=== PATIENT | male | born 1955 | race Caucasian/White ===

== ENCOUNTER 2019-09-30 14:00 | Outpatient (CLI) | payer BC ==
--- NOTE | 2019-09-30 14:58 | ULT ---
THYROID ULTRASOUND: DATE: 09/30/2019. COMPARISON: None. HISTORY: Evaluate for thyroid tissue, history of Tongue base mass on outside imaging. FINDINGS: A focused ultrasound in the region of the thyroid gland is provided. No appreciable thyroid tissue i s seen in the expected location of the isthmus, right lobe, or left lobe. IMPRESSION: Ultrasound of the neck demonstrates no appreciable thyroid tissue. In this clinical context, perhaps the patient's mass at the base of the tongue could represent lingual thyroid tissue. Correlation with prior imaging is requested as no comparison imaging is available. If there is clinical concern for lingual thyroid, nuclear medicine imaging may be beneficial. POS: [id number]
== END 2019-09-30 14:01 | disposition home or self-care (01) ==
LOC: BICULT 14:00
PROVIDERS: ATTEND Specialist
DX: E07.89 Other specified disorders of thyroid (principal)
CPT/HCPCS: 76536

== ENCOUNTER 2020-12-17 13:15 | Inpatient (IN) | payer BC ==
[~2020-12-17 13:15] MED LIST: Iopamidol-370 76% 500 ML 1 ML ONE
[2020-12-17 15:06] LABS: #Eosinphils 0.1 thou/uL (0.0-0.7); #Lymphocytes 1.1 thou/uL (1.20-3.40); #Monocytes 0.4 thou/uL (0.11-0.59); #Neutrophils 14.4 thou/uL (1.40-6.50); %Basophils 0.2 % (0.0-1.0); %Eosinophils 0.6 % (0.0-10.0); %Lymphocytes 6.9 % (21.0-51.0); %Monocytes 2.6 % (0.0-10.0); %Neutrophils 89.7 % (42.0-75.0); Hemoglobin 16.6 g/dL (14.0-18.0); Mean Corpuscular HGB CONC 32.9 g/dL (32.0-36.0); Mean Corpuscular Hemoglobin 30.6 pg (27.0-31.0); Mean Corpuscular Volume 92.8 fL (78.0-98.0); Mean Platelet Volume 9.2 fL (7.4-10.4); Platelet Count 203 thou/uL (130-400); RBC Distribution Width 12.9 % (11.5-14.5); Red Blood Cell (RBC) Count 5.44 mill/uL (4.70-6.10)
[2020-12-17 15:16] LABS: PTT 26.7 sec (22.9-36.1); Prothrombin Time 13.2 sec (12.0-14.7)
[2020-12-17 16:25] LABS: ALT (SGPT) 20 U/L (8-55); AST (SGOT) 15 U/L (5-34); Albumin 4.1 g/dL (3.4-4.8); Alkaline Phosphatase 83 U/L (40-110); Anion Gap 15 mmol/L (10-20); BUN (Urea Nitrogen) 18 mg/dL (8.4-25.7); Bilirubin, Total 0.8 mg/dL (0.2-1.2); Calc. Creatinine Clearance 0 mL/min (70-130); Calcium 9.3 mg/dL (7.8-10.44); Carbon Dioxide 24 mmol/L (23-31); Chloride 105 mmol/L (98-107); Globulin 2.8 g/dL (2.4-3.5); Glucose 123 mg/dL (80-115); Potassium 4.4 mmol/L (3.5-5.1); Protein, Total 6.9 g/dL (5.8-8.1); Sodium 140 mmol/L (136-145)
[2020-12-17] MEDS ORDERED: traMADol HCl 50 MG TAB PO PRN (19:38)
[2020-12-17] MEDS ORDERED: Acetaminophen/Codeine 30-300mg Tablet PO PRN (19:38)
[2020-12-17] MEDS ORDERED: Morphine 2 MG/ML VIAL SLOW IVP PRN (19:38)
[2020-12-17] MEDS ORDERED: HYDROcodone/Acetaminophen 7.5/325 mg Tablet PO PRN (19:38)
[2020-12-17] MEDS: Dexamethasone 4 MG TAB PO SCH ×2 (23:31→23:52)
[2020-12-18 00:44] LABS: SARS-CoV-2 NAA Rapid Test Not Detected (NotDetected)
[2020-12-18] MEDS: Dexamethasone 4 MG TAB PO SCH ×3 (05:12→18:06)
[2020-12-18] MEDS ORDERED: Heparin 1,000 UNITS/ML VIAL ONE (09:56)
[2020-12-18] MEDS ORDERED: Sodium Chloride 0.9% 10 ML ONE ×2 (10:03→11:18)
[2020-12-18] MEDS ORDERED: Thrombin 5000 UNITS/5 ML VIAL ONE (10:03)
[2020-12-18] MEDS ORDERED: Bacitracin Zinc Ointment 30 gm TUBE ONE (10:03)
[2020-12-18] MEDS ORDERED: Phenylephrine 10 MG/ML VIAL ONE (10:05)
[2020-12-18] MEDS ORDERED: PROPOFOL 200 MG/20 ML VIAL ONE (10:30)
[2020-12-18] MEDS ORDERED: Rocuronium Bromide 10 MG/ML (10ML VIAL) ONE (10:30)
[2020-12-18] MEDS ORDERED: Ondansetron PF 4 MG/2 ML Vial ONE (10:30)
[2020-12-18] MEDS ORDERED: Lidocaine 1% PF 5 ML VIAL ONE (10:30)
[2020-12-18] MEDS ORDERED: Glycopyrrolate 0.2 MG/ML 5 ML SYRINGE ONE (10:30)
[2020-12-18] MEDS ORDERED: Succinylcholine 200 MG/10 ml SYRINGE FS ONE (10:30)
[2020-12-18] MEDS ORDERED: Dexamethasone 20 MG/5 ML VIAL ONE (10:30)
[2020-12-18] MEDS ORDERED: Fentanyl 100 MCG/2 ML VIAL ONE ×5 (10:32→13:17)
[2020-12-18] MEDS ORDERED: Nitroglycerin 50 MG/250 ML BOT 0 ML ONE (10:34)
[2020-12-18] MEDS ORDERED: Promethazine HCl 25 MG/ML VIAL SLOW IVP PRN (11:29)
[2020-12-18] MEDS ORDERED: Meperidine HCl/PF 25 MG/ML VIAL SLOW IVP PRN (11:29)
[2020-12-18] MEDS ORDERED: Promethazine HCl 25 MG/ML VIAL IM PRN (11:29)
[2020-12-18] MEDS ORDERED: HYDROmorphone 2 MG/ML VIAL SLOW IVP PRN (11:29)
[2020-12-18] MEDS ORDERED: SUGAMMADEX SODIUM 200 MG/2 ML VIAL ONE (11:53)
[2020-12-18] MEDS ORDERED: Labetalol HCl 100 MG/20 ML VIAL SLOW IVP PRN (12:19)
[2020-12-18] MEDS ORDERED: Promethazine HCl 12.5 MG in Sodium Chloride 0.9% 50 ML IVPB PRN (12:19)
[2020-12-18] MEDS ORDERED: Labetalol HCl 100 MG/20 ML VIAL ONE (12:22)
[2020-12-18] MEDS ORDERED: hydrALAZINE 20 MG/ML VIAL ONE (12:53)
[2020-12-18] MEDS: Acetaminophen 325 MG TAB PO PRN ×2 (14:13→20:19)
[2020-12-18] MEDS: hydrALAZINE 20 MG/ML VIAL SLOW IVP PRN ×2 (14:13→14:44)
[2020-12-18] MEDS: Atorvastatin Calcium 20 MG TAB PO SCH (20:20)
[2020-12-19] MEDS: Dexamethasone 4 MG TAB PO SCH ×4 (00:24→17:34)
[2020-12-19 05:19] VITALS: BMI 28.4
[2020-12-19] MEDS: Levothyroxine 175 MCG TAB PO SCH (06:07)
[2020-12-19] MEDS ORDERED: Atenolol 25 MG TAB PO SCH (09:00)
[2020-12-19] MEDS: Allopurinol 300 MG TAB PO SCH (09:44)
[2020-12-19] MEDS: Ondansetron PF 4 MG/2 ML Vial IVP PRN (09:44)
[2020-12-19] MEDS: Amlodipine 5 MG TAB PO SCH (09:47)
[2020-12-19] MEDS: Acetaminophen 325 MG TAB PO PRN (21:07)
[2020-12-19] MEDS: Atorvastatin Calcium 20 MG TAB PO SCH (21:07)
[2020-12-20] MEDS: Dexamethasone 4 MG TAB PO SCH ×3 (00:28→11:05)
[2020-12-20] MEDS: Levothyroxine 175 MCG TAB PO SCH (05:43)
[2020-12-20] MEDS: Amlodipine 5 MG TAB PO SCH (08:24)
[2020-12-20] MEDS: Allopurinol 300 MG TAB PO SCH (08:24)
[2020-12-20] MEDS: Ondansetron PF 4 MG/2 ML Vial IVP PRN (08:24)
[2020-12-20] MEDS ORDERED: Iopamidol-370 76% 500 ML 1 ML ONE (08:51)
[2020-12-20] MEDS ORDERED: Lidocaine 1% (PF) 30 ML VIAL ONE (11:39)
[2020-12-20 16:26] VITALS: BP 139/93; TEMP 97.7
== END 2020-12-20 18:15 | disposition home or self-care (01) | DRG 25 ==
LOC: ERS 13:15 → ONC 15:29 → CCU 12-18 13:55 → SURG A 12-19 10:45
PROVIDERS: ADMIT Surgery; ATTEND Surgery
PROC: 00BC0ZZ Excision of Cerebellum, Open Approach (ICD-10-PCS; principal; 2020-12-18)
PROC: 06H03DZ Insertion of Intraluminal Device into Inferior Vena Cava, Percutaneous Approach (ICD-10-PCS; 2020-12-20)
PROC: B519ZZZ Fluoroscopy of Inferior Vena Cava (ICD-10-PCS; 2020-12-20)
DX: C79.31 Secondary malignant neoplasm of brain (principal); G93.5 Compression of brain; G93.6 Cerebral edema; I82.442 Acute embolism and thrombosis of left tibial vein; I48.11 Longstanding persistent atrial fibrillation; Z20.822 Contact with and (suspected) exposure to COVID-19; I10 Essential (primary) hypertension; E03.9 Hypothyroidism, unspecified; M10.9 Gout, unspecified; Z85.820 Personal history of malignant melanoma of skin; Z80.1 Family history of malignant neoplasm of trachea, bronchus and lung; Z80.0 Family history of malignant neoplasm of digestive organs; Z79.899 Other long term (current) drug therapy; Z79.52 Long term (current) use of systemic steroids
CPT/HCPCS: 37191; 70450; 70470; 71260; 74177; 80053; 83880; 85025; 85610; 85730; 88307; 88341; 88342; 93005; 93010; 93306; 93970; C1769; J0360; J0690; J1100; J1642; J1644; J2001; J2270; J2370; J2405; J2550; J2704; J3010; J3490; J8540; Q9967; U0002; U0005

== ENCOUNTER 2021-01-04 10:16 | Outpatient (CLI) | payer BC | END 2021-01-04 10:17 | disposition home or self-care (01) | LOC: CT 10:16 | PROVIDERS: ATTEND Surgery | DX: C79.31 Secondary malignant neoplasm of brain (principal); Z98.890 Other specified postprocedural states | CPT/HCPCS: 70450 ==

== ENCOUNTER 2021-01-14 11:31 | Outpatient (CLI) | payer BC ==
[2021-01-14 13:01] LABS: Hemoglobin 14.6 g/dL (13.5-17.5); Mean Corpuscular Hemoglobin 30.4 pg (27.0-33.0); Mean Corpuscular Volume 92.3 fl (81.2-95.1); Mean Platelet Volume 10.4 fl (7.4-10.4); Platelet Count 224 10x3/uL (150-450); RBC Distribution Width 13.1 % (11.5-14.5); White Blood Cell (WBC) Count 8.1 10x3/uL (3.5-10.5)
[2021-01-14 13:39] LABS: Anion Gap 14 mmol/L (10-20); BUN (Urea Nitrogen) 16 mg/dL (8.4-25.7); Calc. Creatinine Clearance 0 mL/min (70-130); Calcium 9.4 mg/dL (7.8-10.44); Carbon Dioxide 28 mmol/L (23-31); Chloride 106 mmol/L (98-107); Glucose 82 mg/dL (80-115); Potassium 4.8 mmol/L (3.5-5.1); Sodium 143 mmol/L (136-145)
== END 2021-01-14 11:32 | disposition home or self-care (01) ==
LOC: LABBT 11:31
PROVIDERS: ATTEND Thoracic Surgery (Cardiothoracic Vascular Surgery)
DX: Z01.812 Encounter for preprocedural laboratory examination (principal); I82.409 Acute embolism and thrombosis of unspecified deep veins of unspecified lower extremity
CPT/HCPCS: 80048; 85027

== ENCOUNTER 2021-01-19 07:56 | Day surgery (SDC) | payer BC ==
[2021-01-18 11:36] VITALS: BMI 27.6
[2021-01-19] MEDS ORDERED: Iopamidol 370 76% 50 ML VIAL FS ONE (09:16)
[2021-01-19] MEDS ORDERED: Lidocaine 1% (PF) 30 ML VIAL ONE (09:54)
== END 2021-01-19 14:20 | disposition home or self-care (01) ==
LOC: SDC 07:56
PROVIDERS: ATTEND Thoracic Surgery (Cardiothoracic Vascular Surgery)
PROC: 06PY3DZ Removal of Intraluminal Device from Lower Vein, Percutaneous Approach (ICD-10-PCS; principal; 2021-01-19)
DX: Z45.89 Encounter for adjustment and management of other implanted devices (principal); I10 Essential (primary) hypertension; E03.9 Hypothyroidism, unspecified; M10.9 Gout, unspecified; Z79.899 Other long term (current) drug therapy; Z98.890 Other specified postprocedural states
CPT/HCPCS: 37193; 76942; J2001; Q9967

== ENCOUNTER 2021-05-18 10:42 | Outpatient (CLI) | payer BC | END 2021-05-18 10:43 | disposition home or self-care (01) | LOC: MRI 10:42 | PROVIDERS: ATTEND Radiology Radiation Oncology | DX: C79.31 Secondary malignant neoplasm of brain (principal); Z98.890 Other specified postprocedural states; Z92.3 Personal history of irradiation | CPT/HCPCS: 70553; 82565 ==

== ENCOUNTER 2021-05-30 08:19 | Outpatient (CLI) | payer BC | END 2021-05-30 08:20 | disposition home or self-care (01) | LOC: LABBT 08:19 | PROVIDERS: ATTEND Internal Medicine Cardiovascular Disease | DX: Z01.812 Encounter for preprocedural laboratory examination (principal); C79.31 Secondary malignant neoplasm of brain; I48.19 Other persistent atrial fibrillation; Z20.822 Contact with and (suspected) exposure to COVID-19 | CPT/HCPCS: 80053; 85027; 85610; 86850; 86900; 86901; U0003; U0005 ==

== ENCOUNTER 2021-05-30 09:30 | Inpatient (IN) | payer BC ==
[2021-05-30 10:39] LABS: Mean Corpuscular HGB CONC 32.8 g/dL (32.0-36.0); Mean Corpuscular Hemoglobin 29.9 pg (27.0-33.0); Mean Corpuscular Volume 91.2 fl (81.2-95.1); Mean Platelet Volume 11.5 fl (7.4-10.4); Platelet Count 165 10x3/uL (150-450); RBC Distribution Width 13.6 % (11.5-14.5); Red Blood Cell (RBC) Count 5.02 10x6/uL (4.32-5.72); White Blood Cell (WBC) Count 6.4 10x3/uL (3.5-10.5)
[2021-05-30 10:43] LABS: Prothrombin Time 11.1 sec (9.5-12.1)
[2021-05-30 10:52] LABS: ALT (SGPT) 19 U/L (8-55); AST (SGOT) 20 U/L (5-34); Albumin 3.9 g/dL (3.4-4.8); Alkaline Phosphatase 80 U/L (40-110); Anion Gap 13 mmol/L (10-20); BUN (Urea Nitrogen) 17 mg/dL (8.4-25.7); Bilirubin, Total 0.8 mg/dL (0.2-1.2); Calc. Creatinine Clearance 0 mL/min (70-130); Calcium 8.7 mg/dL (7.8-10.44); Carbon Dioxide 25 mmol/L (23-31); Chloride 107 mmol/L (98-107); Globulin 2.3 g/dL (2.4-3.5); Glucose 91 mg/dL (80-115); Protein, Total 6.2 g/dL (5.8-8.1); Sodium 140 mmol/L (136-145)
[2021-05-30 17:35] LABS: SARS-CoV-2 PCR by NAA Not Detected (NotDetected)
[2021-05-31 16:14] VITALS: BMI 29.8
[2021-06-02] MEDS ORDERED: Heparin 10,000 UNITS/ 10 ML VIAL ONE (08:19)
[2021-06-02] MEDS ORDERED: Ondansetron PF 4 MG/2 ML Vial ONE (09:24)
[2021-06-02] MEDS ORDERED: Glycopyrrolate 0.2 MG/ML 5 ML SYRINGE ONE (09:24)
[2021-06-02] MEDS ORDERED: PROPOFOL 200 MG/20 ML VIAL ONE (09:24)
[2021-06-02] MEDS ORDERED: Lidocaine 1% PF 5 ML VIAL ONE (09:24)
[2021-06-02] MEDS ORDERED: Rocuronium Bromide 10 MG/ML (10ML VIAL) ONE (09:24)
[2021-06-02] MEDS ORDERED: Dexamethasone 20 MG/5 ML VIAL ONE (09:24)
[2021-06-02] MEDS ORDERED: CEFAZOLIN 1 GM VIAL ONE ×2 (09:35→10:18)
[2021-06-02] MEDS ORDERED: Protamine Sulfate 50 MG/5 ML VIAL ONE (10:18)
[2021-06-02] MEDS ORDERED: Fentanyl 100 MCG/2 ML VIAL ONE (10:19)
== END 2021-06-02 14:47 | disposition home or self-care (01) | DRG 274 ==
LOC: SURG A 06-02 07:00
PROVIDERS: ADMIT Internal Medicine Cardiovascular Disease; ATTEND Internal Medicine Cardiovascular Disease
PROC: 02L73DK Occlusion of Left Atrial Appendage with Intraluminal Device, Percutaneous Approach (ICD-10-PCS; principal; 2021-06-02)
PROC: B24BZZ4 Ultrasonography of Heart with Aorta, Transesophageal (ICD-10-PCS; 2021-06-02)
DX: I48.21 Permanent atrial fibrillation (principal); C79.31 Secondary malignant neoplasm of brain; Z00.6 Encounter for examination for normal comparison and control in clinical research program; Z20.822 Contact with and (suspected) exposure to COVID-19; E78.5 Hyperlipidemia, unspecified; I10 Essential (primary) hypertension; M10.9 Gout, unspecified; Z85.820 Personal history of malignant melanoma of skin; Z98.890 Other specified postprocedural states; Z86.718 Personal history of other venous thrombosis and embolism; Z80.3 Family history of malignant neoplasm of breast; Z80.1 Family history of malignant neoplasm of trachea, bronchus and lung; Z80.0 Family history of malignant neoplasm of digestive organs; Z79.899 Other long term (current) drug therapy; Z79.890 Hormone replacement therapy; Z79.01 Long term (current) use of anticoagulants
CPT/HCPCS: 33340; 36415; 36430; 80053; 85027; 85347; 85610; 86850; 86900; 86901; 93312; 93662; C1759; J0690; J1100; J1644; J2405; J2704; J2720; J3010; U0003; U0005

== ENCOUNTER 2021-07-21 09:02 | Outpatient (CLI) | payer BC ==
[2021-07-21 11:23] LABS: Hemoglobin 14.7 g/dL (13.5-17.5); Mean Corpuscular HGB CONC 32.7 g/dL (32.0-36.0); Mean Corpuscular Volume 91.6 fl (81.2-95.1); Mean Platelet Volume 11.3 fl (7.4-10.4); Platelet Count 202 10x3/uL (150-450); RBC Distribution Width 13.2 % (11.5-14.5); White Blood Cell (WBC) Count 7.3 10x3/uL (3.5-10.5)
[2021-07-21 11:43] LABS: Prothrombin Time 11.2 sec (9.5-12.1)
[2021-07-21 11:44] LABS: Anion Gap 14 mmol/L (10-20); BUN (Urea Nitrogen) 19 mg/dL (8.4-25.7); Calc. Creatinine Clearance 0 mL/min (70-130); Calcium 9.1 mg/dL (7.8-10.44); Carbon Dioxide 25 mmol/L (23-31); Chloride 107 mmol/L (98-107); Glucose 94 mg/dL (80-115); Potassium 4.6 mmol/L (3.5-5.1); Sodium 141 mmol/L (136-145)
[2021-07-21 20:43] LABS: SARS-CoV-2 PCR by NAA Not Detected (NotDetected)
== END 2021-07-21 09:03 | disposition home or self-care (01) ==
LOC: LABBT 09:02
PROVIDERS: ATTEND Internal Medicine Cardiovascular Disease
DX: Z01.812 Encounter for preprocedural laboratory examination (principal); I48.0 Paroxysmal atrial fibrillation; Z95.818 Presence of other cardiac implants and grafts; Z20.822 Contact with and (suspected) exposure to COVID-19
CPT/HCPCS: 80048; 85027; 85610; U0003; U0005

== ENCOUNTER → 2021-07-26 | Day surgery (SDC) | payer BC ==
[2021-07-20 11:33] VITALS: BMI 29.2
[~2021-07-26] MED LIST changes: -Iopamidol-370 76% 500 ML 1 ML ONE; +PROPOFOL 200 MG/20 ML VIAL ONE
== END ==
LOC: CCL 06:06
PROVIDERS: ATTEND Internal Medicine Cardiovascular Disease
PROC: B246ZZ4 Ultrasonography of Right and Left Heart, Transesophageal (ICD-10-PCS; principal; 2021-07-26)
DX: I48.21 Permanent atrial fibrillation (principal); I48.92 Unspecified atrial flutter; I11.9 Hypertensive heart disease without heart failure; E78.5 Hyperlipidemia, unspecified; M10.9 Gout, unspecified; Z85.820 Personal history of malignant melanoma of skin; Z85.841 Personal history of malignant neoplasm of brain; Z86.718 Personal history of other venous thrombosis and embolism; Z79.01 Long term (current) use of anticoagulants; Z79.82 Long term (current) use of aspirin; Z79.899 Other long term (current) drug therapy; Z95.818 Presence of other cardiac implants and grafts
CPT/HCPCS: 93312; J2704

== ENCOUNTER 2021-08-15 07:40 | Outpatient (CLI) | payer BC | END 2021-08-15 07:41 | disposition home or self-care (01) | LOC: CT 07:40 | PROVIDERS: ATTEND Internal Medicine Hematology & Oncology | DX: C43.59 Malignant melanoma of other part of trunk (principal); R91.1 Solitary pulmonary nodule; N28.1 Cyst of kidney, acquired | CPT/HCPCS: 71260; 74177 ==

== ENCOUNTER 2021-11-28 09:36 | Outpatient (CLI) | payer BC ==
[~2021-11-28 09:36] MED LIST changes: +Magnevist 469MG/ML 20 ML VIAL ONE; -PROPOFOL 200 MG/20 ML VIAL ONE
== END 2021-11-28 09:37 | disposition home or self-care (01) ==
LOC: MRI 09:36
PROVIDERS: ATTEND Radiology Radiation Oncology
DX: C71.9 Malignant neoplasm of brain, unspecified (principal); C79.9 Secondary malignant neoplasm of unspecified site
CPT/HCPCS: 70553; A9579

== ENCOUNTER 2022-01-30 08:25 | Outpatient (CLI) | payer MEDICARE, BC ==
[2022-01-30] MEDS ORDERED: Iopamidol-370 76% 500 ML 1 ML ONE (11:29)
== END 2022-01-30 08:26 | disposition home or self-care (01) ==
LOC: BICCT 08:25
PROVIDERS: ATTEND Internal Medicine Hematology & Oncology
DX: C43.59 Malignant melanoma of other part of trunk (principal)
CPT/HCPCS: 71260; 74177; 82565; Q9967

== ENCOUNTER 2022-03-27 08:31 | Outpatient (CLI) | payer MEDICARE, BC | END 2022-03-27 08:32 | disposition home or self-care (01) | LOC: SCSMRI 08:31 | PROVIDERS: ATTEND Radiology Radiation Oncology | DX: C79.9 Secondary malignant neoplasm of unspecified site (principal) | CPT/HCPCS: 70553; 82565 ==

== ENCOUNTER 2022-07-31 08:32 | Outpatient (CLI) | payer MEDICARE, BC ==
[2022-07-31] MEDS ORDERED: Iopamidol 370 76% 100 ML VIAL ONE (09:21)
== END 2022-07-31 08:33 | disposition home or self-care (01) ==
LOC: CT 08:32
PROVIDERS: ATTEND Internal Medicine Hematology & Oncology
DX: C43.59 Malignant melanoma of other part of trunk (principal)
CPT/HCPCS: 71260; 74177; 82565

== ENCOUNTER 2022-11-29 10:40 | Outpatient (CLI) | payer MEDICARE, BC ==
[2022-11-29] MEDS ORDERED: Magnevist 469MG/ML 20 ML VIAL ONE (10:41)
== END 2022-11-29 10:41 | disposition home or self-care (01) ==
LOC: MRI 10:40
PROVIDERS: ATTEND Radiology Radiation Oncology
DX: C79.31 Secondary malignant neoplasm of brain (principal); Z98.890 Other specified postprocedural states
CPT/HCPCS: 70553

== ENCOUNTER 2023-05-31 08:44 | Outpatient (CLI) | payer MEDICARE, BC | END 2023-05-31 08:45 | disposition home or self-care (01) | LOC: MRI 08:44 | PROVIDERS: ATTEND Radiology Radiation Oncology | DX: C79.31 Secondary malignant neoplasm of brain (principal); Z98.890 Other specified postprocedural states | CPT/HCPCS: 70553 ==

== ENCOUNTER 2023-07-30 08:07 | Outpatient (CLI) | payer MEDICARE, BC | END 2023-07-30 08:08 | disposition home or self-care (01) | LOC: CT 08:07 | PROVIDERS: ATTEND Internal Medicine Hematology & Oncology | DX: C79.9 Secondary malignant neoplasm of unspecified site (principal) | CPT/HCPCS: 71260; 74177; 82565 ==

== ENCOUNTER 2024-07-28 08:57 | Outpatient (CLI) | payer MEDICARE, BC ==
[2024-07-28] MEDS ORDERED: Iopamidol 370 76% 100 ML VIAL ONE (10:03)
== END 2024-07-28 08:58 | disposition home or self-care (01) ==
LOC: BICCT 08:57
PROVIDERS: ATTEND Internal Medicine Hematology & Oncology
DX: C43.59 Malignant melanoma of other part of trunk (principal); N28.1 Cyst of kidney, acquired; M43.8X4 Other specified deforming dorsopathies, thoracic region
CPT/HCPCS: 36415; 71260; 74177; 82565

== ENCOUNTER 2025-02-13 07:37 | Outpatient (CLI) | payer MEDICARE, BC | END 2025-02-13 07:38 | LOC: SCSMRI 07:37 | PROVIDERS: ATTEND Radiology Radiation Oncology | DX: C79.31 Secondary malignant neoplasm of brain (principal); Z98.890 Other specified postprocedural states | CPT/HCPCS: 70553; 76376 ==